=== PATIENT | male | born 1940 | race African-American/Black ===

== ENCOUNTER 2016-08-01 16:23 | Emergency (ER) | payer OTHER ==
[~2016-08-01] VITALS: Ht 177.8 cm; Wt 71.0 kg
[~2016-08-01 16:23] MED LIST: ANUSOL HC,ANUCO25 MG PR; CATAPRES0.2 MG PO; COQ10-VIT E 201 EACH PO; GLIPIZIDE PO; GLUCOTROL10 MG PO; IRON325 MG PO; NORMODYNE,TRAN200 MG PO; NORVASC10 MG PO; NORVASC5 MG PO; PRAVACHOL40 MG PO; VIAGRA100 MG PO; VICODIN 5-3001 EACH PO; VITAMIN D31000 UNIT PO
[2016-08-01 18:13] LABS: HEMATOCRIT 38.7 % (38.0-50.0); MCH 21.9 PG (29.0-34.0); MCHC 30.2 G/DL (30.0-36.0); MCV 72.5 FL (86-99); MEAN PLAT.VOLUME 12.4 uM^3 (9.0-12.4); PLATELET COUNT 174 K/uL (156-360); RBC DIS.WIDTH-CV 15.4 % (11.8-14.6); RED BLOOD COUNT 5.34 M/uL (4.00-5.50)
[2016-08-01 18:18] LABS: CHLORIDE 107 mEq/L (99-109); POTASSIUM 4.8 mEq/L (3.7-5.4); SODIUM 139 mEq/L (136-147)
[2016-08-01 18:20] LABS: GLUCOSE 133 mg/dL (70-99)
[2016-08-01 18:21] LABS: ANION GAP 9 MEQ/L (2-14)
[2016-08-01 18:24] LABS: GFR ESTIMATE (CALCULATED) 51 mL/min/; UREA NITROGEN (BUN) 37 mg/dL (9-23)
[2016-08-01] MEDS ORDERED: CLEOCIN300 MG PO (20:19)
[2016-08-01] MEDS ORDERED: NAPROSYN500 MG PO (20:19)
[2016-08-01 20:40] VITALS: BP 132/77
== END 2016-08-01 20:41 | disposition home or self-care (01) ==
LOC: EME 16:23
PROVIDERS: Physician Assistant
DX: L03.012 Cellulitis of left finger (principal); M10.9 Gout, unspecified; I10 Essential (primary) hypertension
CPT/HCPCS: 73140; 80048; 84550; 85027; 99281; 99284; J0696

== ENCOUNTER → 2017-01-01 | Outpatient (CLI) | payer OTHER ==
[~2017-01-01] MED LIST changes: +CLEOCIN300 MG PO; +NAPROSYN500 MG PO
== END | disposition home or self-care (01) ==
LOC: RAD 11:46
DX: K62.89 Other specified diseases of anus and rectum (principal)
CPT/HCPCS: 71260; 74177

== ENCOUNTER → 2017-03-09 | Outpatient (CLI) | payer OTHER ==
[~2017-03-09] VITALS: Ht 177.8 cm; Wt 72.1 kg
== END | disposition home or self-care (01) ==
LOC: AMB 15:06
DX: C20 Malignant neoplasm of rectum (principal); D12.3 Benign neoplasm of transverse colon; K57.90 Diverticulosis of intestine, part unspecified, without perforation or abscess without bleeding; I10 Essential (primary) hypertension; E78.4 Other hyperlipidemia; E11.9 Type 2 diabetes mellitus without complications; D53.9 Nutritional anemia, unspecified; K62.6 Ulcer of anus and rectum; Z85.048 Personal history of other malignant neoplasm of rectum, rectosigmoid junction, and anus; Z92.21 Personal history of antineoplastic chemotherapy; Z92.3 Personal history of irradiation
CPT/HCPCS: 88305; J3010